=== PATIENT | male | born 1995 | race Caucasian/White ===

== ENCOUNTER 2017-10-06 16:24 | Inpatient (IN) | payer SELFPAY ==
[~2017-10-06] VITALS: Ht 177.8 cm; Wt 59.7 kg
[2017-10-06] MEDS ORDERED: ONDANSETRON 2MG/ML, 2ML ONE (17:08)
[2017-10-06 17:25] LABS: MEAN CORPUSCULAR HEMOGLOBIN 31.1 pg (27.5-34.5); MEAN CORPUSCULAR HGB CONC 34.1 g/dL (33.2-36.2); MEAN CORPUSCULAR VOLUME 91.3 fL (81-97); MEAN PLATELET VOLUME 9.4 fL (7.4-10.4); PLATELET COUNT 329 x10^3/uL (130-400); RED BLOOD COUNT 7.09 x10^6/uL (4.38-5.82); RED CELL DISTRIBUTION WIDTH 12.4 % (9.4-14.8)
[2017-10-06] MEDS ORDERED: ONDANSETRON 2MG/ML, 2ML IVPush ONE (17:30)
[2017-10-06] MEDS ORDERED: SODIUM CHLORIDE 0.9% 1,000ML IVBOLUS ONE ×2 (17:30→18:00)
[2017-10-06] MEDS ORDERED: SODIUM CHLORIDE FLUSH 10ML SYR IVF ONE (17:30)
[2017-10-06 17:41] LABS: ALANINE AMINOTRANSFERASE 25 U/L (12-78); ALBUMIN 5.4 g/dL (3.4-5.0); ANION GAP 16 mmol/L (5-15); CALCIUM 10.1 mg/dL (8.5-10.1); CHLORIDE 86 mmol/L (98-107); CREATININE 2.42 mg/dL (0.7-1.3)
[2017-10-06 17:43] LABS: ALKALINE PHOSPHATASE 131 U/L (45-117); BILIRUBIN,TOTAL 3.4 mg/dL (0.2-1.0)
[2017-10-06] MEDS ORDERED: DIPHENHYDRAMINE 50 MG/ML, 1ML ONE (17:47)
[2017-10-06] MEDS ORDERED: METOCLOPRAMIDE 5 MG/ML, 2ML ONE (17:48)
[2017-10-06 17:51] LABS: BASOPHILS # (AUTO) 0.03 x10^3/uL (0-0.1); BASOPHILS % (AUTO) 0 % (0-1); EOSINOPHILS # (AUTO) 0.11 x10^3/uL (0-0.4); EOSINOPHILS % (AUTO) 1 % (1-7); LYMPHOCYTES # (AUTO) 2.35 x10^3/uL (1-3.4); LYMPHOCYTES % (AUTO) 14 % (22-44); MD SCAN; MONOCYTES # (AUTO) 1.93 x10^3/uL (0.2-0.8); MONOCYTES % (AUTO) 11 % (2-9); NEUTROPHILS # (AUTO) 12.63 x10^3/uL (1.8-6.8); NEUTROPHILS % (AUTO) 74 % (42-75)
[2017-10-06] MEDS ORDERED: DIPHENHYDRAMINE 50 MG/ML, 1ML IVPush ONE (18:00)
[2017-10-06] MEDS ORDERED: METOCLOPRAMIDE 5 MG/ML, 2ML IVPush ONE (18:00)
[2017-10-06] MEDS ORDERED: SODIUM CHLORIDE 0.9% 1,000 ML IV ONE (18:15)
[2017-10-06] MEDS ORDERED: ACETAMINOPHEN 325 MG TABLET PO PRN (20:30)
[2017-10-06] MEDS ORDERED: HYOSCYAMINE PO PRN (20:30)
[2017-10-06 20:45] VITALS: BP 137/87
[2017-10-06 21:17] LABS: MICROSCOPIC NOT IND
[2017-10-06 21:20] LABS: CULTURE INDICATED? NO
[2017-10-06] MEDS: ONDANSETRON 2MG/ML, 2ML IVPush PRN (21:56)
[2017-10-06] MEDS: LACTATED RINGERS 1,000 ML IV SCH (21:57)
[2017-10-06] MEDS ORDERED: ONDA4TAB7 PO (22:08)
[2017-10-07 02:03] VITALS: BP 133/71
[2017-10-07] MEDS: ONDANSETRON 2MG/ML, 2ML IVPush PRN (04:18)
[2017-10-07] MEDS: LACTATED RINGERS 1,000 ML IV SCH (06:13)
[2017-10-07 06:49] LABS: ANION GAP 8 mmol/L (5-15); CALCIUM 8.5 mg/dL (8.5-10.1); CHLORIDE 100 mmol/L (98-107); CREATININE 1.33 mg/dL (0.7-1.3)
[2017-10-07 08:00] VITALS: BP 127/71
[2017-10-07] MEDS: POTASSIUM CHLORIDE 40 MEQ in LACTATED RINGERS 1,000 ML IV SCH ×2 (08:47→22:56)
[2017-10-07 13:44] VITALS: BP 127/69
[2017-10-07] MEDS ORDERED: NICOTINE 14MG/24 HR PATCH.TD24 TD SCH (18:30)
[2017-10-07 20:47] VITALS: BP 135/67
[2017-10-08 04:11] VITALS: BP 116/70
[2017-10-08 05:18] LABS: ANION GAP 5 mmol/L (5-15); CALCIUM 8.4 mg/dL (8.5-10.1); CHLORIDE 103 mmol/L (98-107)
[2017-10-08 05:21] LABS: HCT (SEDRATE) 43.8 % (39.2-51.8)
[2017-10-08 05:31] LABS: CREATININE 1.04 mg/dL (0.7-1.3); HIGH-SENSITIVITY CRP 0.04 mg/dL (0.02-0.30)
[2017-10-08 08:29] VITALS: BP 132/69
[2017-10-08] MEDS ORDERED: PNEUMOCOCCAL 23 VACCINE IM-VACC ONE (11:00)
[2017-10-08] MEDS ORDERED: FLU VACC QS2017-18 (36MOS+) UP/PF 0.5 ML IM-VACC ONE (11:00)
== END 2017-10-08 12:46 | disposition home or self-care (01) | DRG 683 ==
LOC: ED 18:14 → EDIP 18:15 → ED 18:25 → 4EST 20:31
PROVIDERS: ADMIT Internal Medicine; ATTEND Internal Medicine
DX: N17.9 Acute kidney failure, unspecified (principal); E87.1 Hypo-osmolality and hyponatremia; E87.0 Hyperosmolality and hypernatremia; D75.1 Secondary polycythemia; E86.0 Dehydration; E87.6 Hypokalemia; F12.90 Cannabis use, unspecified, uncomplicated; G43.A0 Cyclical vomiting, in migraine, not intractable; T40.7X5A Adverse effect of cannabis (derivatives), initial encounter; Y92.89 Other specified places as the place of occurrence of the external cause; Z87.891 Personal history of nicotine dependence
CPT/HCPCS: 36415; 71045; 74245; 76700; 80048; 80053; 81003; 82375; 83690; 83735; 84443; 85018; 85025; 85651; 86141; 86677; 90686; 90732; 93005; 96361; 96374; 96375; J2405; J3480; J1200; J2765; J7030; J7120

== ENCOUNTER 2019-03-06 08:55 | Emergency (ER) | payer OTHER ==
[~2019-03-06] VITALS: Ht 172.7 cm; Wt 62.6 kg
[~2019-03-06 08:55] MED LIST: ONDA4TAB7 PO
--- NOTE | 2019-03-06 09:15 | NUR ---
PT PRESENTS WITH N/V X 3 WEEKS DUE TO CYLIC VOMITING. PT STATES HE HAS VISITED THE ED MULTIPLE TIMES FOR SAME. STATES HE STOPPED HIS DRUGE USE 3 WEEKS AGO WHEN HE WAS TOLD THAT IT WAS CAUSING THE VOMITING. PT BREATHING REGULAR AND UNLABORED. MILD AMOUNT OF DISTRESS AND DISCOMFORT NOTED. POC DISCUSSED. PT AGREEABLE. IV STARTED AND IVF STARTED. PT ON VIDEO CLERK, CONT. PULSE OX, AND BP. WILL CONTINUE TO MONITOR.
[2019-03-06] MEDS ORDERED: DIPHENHYDRAMINE 50 MG/ML, 1ML ONE (09:18)
[2019-03-06] MEDS ORDERED: HALOPERIDOL 5 MG/ML ONE (09:18)
[2019-03-06] MEDS ORDERED: METOCLOPRAMIDE 5 MG/ML, 2ML ONE (09:18)
[2019-03-06 09:24] LABS: BASOPHILS # (AUTO) 0.03 x10^3/uL (0-0.1); BASOPHILS % (AUTO) 0 % (0-1); EOSINOPHILS % (AUTO) 2 % (1-7); LYMPHOCYTES # (AUTO) 2.58 x10^3/uL (1-3.4); LYMPHOCYTES % (AUTO) 21 % (22-44); MD NO; MEAN CORPUSCULAR HEMOGLOBIN 31.1 pg (27.5-34.5); MEAN CORPUSCULAR HGB CONC 33.8 g/dL (33.2-36.2); MONOCYTES # (AUTO) 1.24 x10^3/uL (0.2-0.8); MONOCYTES % (AUTO) 10 % (2-9); NEUTROPHILS # (AUTO) 8.23 x10^3/uL (1.8-6.8); NEUTROPHILS % (AUTO) 67 % (42-75); PLATELET COUNT 330 x10^3/uL (130-400); RED BLOOD COUNT 5.95 x10^6/uL (4.38-5.82)
[2019-03-06] MEDS ORDERED: DIPHENHYDRAMINE 50 MG/ML, 1ML IVPush ONE (09:30)
[2019-03-06] MEDS ORDERED: HALOPERIDOL 5 MG/ML IM ONE (09:30)
[2019-03-06] MEDS ORDERED: SODIUM CHLORIDE 0.9% 1,000ML IVBOLUS ONE ×2 (09:30→10:30)
[2019-03-06] MEDS ORDERED: SODIUM CHLORIDE FLUSH 10ML SYR IVF ONE (09:30)
[2019-03-06] MEDS ORDERED: METOCLOPRAMIDE 5 MG/ML, 2ML IVPush ONE (09:30)
[2019-03-06 09:35] LABS: ALBUMIN 4.8 g/dL (3.4-5.0); ANION GAP 8 mmol/L (5-15); CALCIUM 10.3 mg/dL (8.5-10.1); CHLORIDE 93 mmol/L (98-107)
--- NOTE | 2019-03-06 09:36 | NUR ---
PT MEDICATED PER Dec.04 RIGHTS VERIFIED PRIOR.
[2019-03-06 09:41] LABS: ALANINE AMINOTRANSFERASE 29 U/L (12-78); ALKALINE PHOSPHATASE 116 U/L (45-117); BILIRUBIN,TOTAL 1.8 mg/dL (0.2-1.0); CREATININE 1.99 mg/dL (0.7-1.3); TOTAL PROTEIN 8.6 g/dL (6.4-8.2)
--- NOTE | 2019-03-06 10:05 | NUR ---
ERMD AND ERP AT BEDSIDE.
[2019-03-06] MEDS ORDERED: POTASSIUM CHLORIDE 40 MEQ in SODIUM CHLORIDE 0.9% 500 ML IV ONE (10:30)
[2019-03-06] MEDS ORDERED: POTASSIUM CHLORIDE 20 MEQ TAB.ER.PRT PO ONE (10:30)
[2019-03-06] MEDS ORDERED: POTASSIUM CHLORIDE 20 MEQ TAB.ER.PRT ONE (10:49)
--- NOTE | 2019-03-06 11:03 | NUR ---
IV INFUSION OBTAINED FROM PHARMACY. INFUSION STARTED PER Dec.04 RIGHTS VERIFIED PRIOR. 3 P'S ADDRESSED.
--- NOTE | 2019-03-06 12:15 | NUR ---
PT RESTING IN [facility]. NAD NOTED. POC UPDATED. AWAITING FOR IV INFUSION TO BE COMPLETED.
--- NOTE | 2019-03-06 13:27 | NUR ---
BREAK RN: PT LAYING ON GURNEY WITH EYES CLOSED, ABLE TO DOZE OFF, RESPONDS APPROP TO STAFF, NAD, COMFORT MEASURES PROVIDED, CALL LIGHT WITHIN REACH.
--- NOTE | 2019-03-06 14:17 | NUR ---
LAB AT BEDSIDE TO DRAW. EKG IN PROGRESS.
[2019-03-06 14:29] VITALS: BP 122/77
[2019-03-06 14:45] LABS: ANION GAP 5 mmol/L (5-15); CALCIUM 8.4 mg/dL (8.5-10.1); CHLORIDE 105 mmol/L (98-107); CREATININE 1.55 mg/dL (0.7-1.3)
== END 2019-03-06 15:27 | disposition home or self-care (01) ==
LOC: ED 10:18
DX: R11.2 Nausea with vomiting, unspecified (principal); E86.0 Dehydration; E86.9 Volume depletion, unspecified
CPT/HCPCS: 36415; 80048; 80053; 83690; 83735; 85025; 93005; 96365; 96366; 96372; 96375; 99284; J1200; J1630; J2765; J3480; J7030; J7040

== ENCOUNTER 2020-05-05 12:13 | Emergency (ER) | payer OTHER ==
[~2020-05-05] VITALS: Ht 172.7 cm; Wt 65.8 kg
[2020-05-05] MEDS ORDERED: ONDANSETRON 2MG/ML, 2ML ONE (12:45)
[2020-05-05] MEDS ORDERED: FAMOTIDINE 20 MG/2 ML ONE (12:46)
[2020-05-05 12:47] LABS: BASOPHILS # (AUTO) 0.01 x10^3/uL (0-0.1); BASOPHILS % (AUTO) 0 % (0-1); EOSINOPHILS # (AUTO) 0.14 x10^3/uL (0-0.4); EOSINOPHILS % (AUTO) 1 % (1-7); LYMPHOCYTES # (AUTO) 1.39 x10^3/uL (1-3.4); LYMPHOCYTES % (AUTO) 11 % (22-44); MD NO; MEAN CORPUSCULAR HEMOGLOBIN 31.7 pg (27.5-34.5); MEAN CORPUSCULAR HGB CONC 33.3 g/dL (33.2-36.2); MONOCYTES # (AUTO) 0.98 x10^3/uL (0.2-0.8); MONOCYTES % (AUTO) 8 % (2-9); NEUTROPHILS # (AUTO) 10.25 x10^3/uL (1.8-6.8); NEUTROPHILS % (AUTO) 80 % (42-75); PLATELET COUNT 221 x10^3/uL (130-400); RED BLOOD COUNT 6.37 x10^6/uL (4.38-5.82); RED CELL DISTRIBUTION WIDTH 13.2 % (9.4-14.8)
--- NOTE | 2020-05-05 12:50 | NUR ---
PT STATES HX OF CYCLIC VOMITING. STATES HAS BEEN VOMITING X3 DAYS. PT CALM AND COOPERATIVE, NO VOMITING NOTED. PT IV STARTED, MEDICATED PER ORDERS. LABS DRAWN, SENT TO LAB. PT ON MONITORS, VSS. CONT TO MONITOR.
[2020-05-05 12:56] LABS: ALANINE AMINOTRANSFERASE 33 U/L (12-78); ALBUMIN 4.6 g/dL (3.4-5.0); ANION GAP 9 mmol/L (5-15); CALCIUM 9.5 mg/dL (8.5-10.1); CHLORIDE 102 mmol/L (98-107); CREATININE 1.72 mg/dL (0.7-1.3)
[2020-05-05 12:58] LABS: ALKALINE PHOSPHATASE 132 U/L (45-117); BILIRUBIN,TOTAL 1.7 mg/dL (0.2-1.0); TOTAL PROTEIN 8.7 g/dL (6.4-8.2)
[2020-05-05] MEDS ORDERED: FAMOTIDINE 20 MG/2 ML IV ONE (13:00)
[2020-05-05] MEDS ORDERED: ONDANSETRON 2MG/ML, 2ML IVPush ONE (13:00)
[2020-05-05] MEDS ORDERED: SODIUM CHLORIDE 0.9% 1,000ML IVBOLUS ONE (13:00)
--- NOTE | 2020-05-05 14:02 | NUR ---
PT STATES HE FEELS "A LITTLE BETTER." PT REMAINS ON MONITORS, VSS. NO VOMITING. UP FOR ERMD RECHECK.
--- NOTE | 2020-05-05 14:52 | NUR ---
PT D/C'D PER ORDERS. PT VEBALIZED UNDERSTANDING OF D/C ORDERS. HAS ALL OWN BELONGINGS UPON D/C.
[2020-05-05 14:56] VITALS: BP 125/81
== END 2020-05-05 14:57 | disposition home or self-care (01) ==
LOC: ED 13:53
DX: F12.90 Cannabis use, unspecified, uncomplicated (principal); R11.10 Vomiting, unspecified; R10.10 Upper abdominal pain, unspecified; E87.1 Hypo-osmolality and hyponatremia
CPT/HCPCS: 36415; 80053; 83690; 85025; 96361; 96374; 96375; 99284; J2405; J3490; J7030